=== PATIENT | female | born 2000 | race Caucasian/White ===

== ENCOUNTER 2018-05-04 10:51 | Day surgery (SDC) | payer OTHER ==
[~2018-05-04] VITALS: Ht 170.2 cm; Wt 69.3 kg
[2018-05-04] MEDS ORDERED: OMEGA-3 1000 MG1 CAP PO (11:20)
[2018-05-04 11:22] VITALS: BP 104/64; PULSE 91; TEMP 97.9
[2018-05-04 12:55] VITALS: BP 106/63; PULSE 64
[2018-05-04 13:00] VITALS: BP 107/67; PULSE 53
[2018-05-04 13:15] VITALS: BP 114/63; PULSE 57
== END 2018-05-04 13:43 | disposition home or self-care (01) ==
LOC: SDCO 10:51
DX: K60.1 Chronic anal fissure (principal); K92.1 Melena; R10.31 Right lower quadrant pain; Z83.71 Family history of colonic polyps
CPT/HCPCS: J2250; J2405; J3010; J7030